=== PATIENT | female | born 1985 | race Caucasian/White ===

== ENCOUNTER 2016-12-04 21:46 | Inpatient (IN) | payer BC ==
[~2016-12-04] VITALS: Ht 160 cm; Wt 69.8 kg
[~2016-12-04 21:46] MED LIST: MTR600X PO; PRENTAB26 PO
[2016-12-04] MEDS ORDERED: LACTATED RINGER'S 1000ML 1,000 ML IV PRN (22:00)
[2016-12-04] MEDS ORDERED: LACTATED RINGER'S 1000ML 1,000 ML IV SCH (22:00)
[2016-12-04] MEDS ORDERED: PENICILLIN G POTASSIUM IV 3 MU in DEXTROSE 5% 100ML 100 ML IV PRN (22:00)
[2016-12-04] MEDS ORDERED: PENICILLIN G POTASSIUM IV 6 MU in DEXTROSE 5% 250ML 250 ML IV STA (22:05)
[2016-12-04] MEDS ORDERED: BUPIVACAINE 0.25% 30 ML VIAL ONE (22:15)
[2016-12-04] MEDS ORDERED: EpHEDrine SULFATE INJ 50 MG/ML AMP ONE (22:16)
[2016-12-04] MEDS ORDERED: FENTANYL CITRATE INJ 50 MCG/1 ML 2 ML VIAL ONE (22:16)
[2016-12-04] MEDS ORDERED: FENTANYL 2MCG/ML ROPIV 1.25MG/ML 100ML BAG EPI ONE (22:17)
[2016-12-04 22:19] VITALS: Ht 160 cm; Wt 69.8 kg
[2016-12-04 22:20] LABS: HEMATOCRIT 38.3 % (37-47); MEAN CELL VOLUME 89.3 fL (80-100); MEAN CORPUSCULAR HEMOGLOBIN 31.7 pg (25-34); MEAN CORPUSCULAR HGB CONC 35.5 g/dl (32-36); MEAN PLATELET VOLUME 10.7 fL (7.4-10.4); PLATELET COUNT 236 K/uL (130-400); RED BLOOD COUNT 4.29 M/uL (4.2-5.4); WHITE BLOOD COUNT 9.51 K/uL (4.8-10.8)
[2016-12-04] MEDS ORDERED: OXYTOCIN 30 UNITS/500ML NSS IV ONE (22:26)
--- NOTE | 2016-12-04 22:56 | HISTORY & PHYSICAL EXAMINATION ---
DATE OF ADMISSION: 12/04/2016 CHIEF COMPLAINT: Contractions. HISTORY OF PRESENT ILLNESS: The patient is a 31-year-old 2, para 1 at 38 weeks and 6 days gestation who presents to labor and delivery with contractions that began around 6:30 p.m. and progressively increased in intensity and frequency. She is currently ivon every 2-3 minutes spontaneously. On arrival, she was found to be 5 cm, 100% effaced and 0 station. heart tones are category 1. Her care has been uncomplicated. She is GBS positive. Will begin penicillin for GBS prophylaxis. PAST MEDICAL HISTORY: Significant for pneumonia. PAST SURGICAL HISTORY: She had eye surgery and thoracentesis for her pneumonia. SOCIAL HISTORY: The patient denies tobacco, alcohol or drug use. MEDICATIONS: vitamins. ALLERGIES: No known drug allergies. LABS: Blood type is O positive, group B strep positive, rubella immune, hepatitis B surface antigen negative, RPR nonreactive and HIV negative. PHYSICAL EXAMINATION: VITAL SIGNS: Blood pressure is 135/92, heart rate of 63, respiration rate of 20, temperature 97.9. GENERAL: The patient is awake, alert and oriented x3. She is in moderate distress from her contractions. HEART: Regular rate and rhythm. LUNGS: Clear to auscultation bilaterally. ABDOMEN: Soft, nontender. Bowel sounds present x4. EXTREMITIES: No clubbing, cyanosis or calf tenderness. VAGINAL: She is 5 cm dilated, 100% effaced and 0 station. heart tones category 1. ASSESSMENT AND PLAN: A 31-year-old 2, para 1 at 38 weeks and 6 days gestation, will be admitted to labor and delivery for active labor. She is GBS positive and will begin penicillin for GBS prophylaxis. She may have her epidural upon request and anticipate vaginal delivery.
[2016-12-04] MEDS ORDERED: HYDROCORTISONE ACETATE 25 MG SUPP PR PRN (23:15)
[2016-12-04] MEDS ORDERED: OXYTOCIN 30 UNITS/500ML NSS IV PRN (23:15)
[2016-12-04] MEDS ORDERED: DIPHTHERIA/TETANUS/PERTUSSIS 0.5 ML SYR/VIAL IM. ONE (23:15)
[2016-12-04] MEDS ORDERED: ACETAMINOPHEN 325 MG TAB PO PRN (23:15)
[2016-12-04] MEDS ORDERED: SUPERCREAM 0.870 % 15GM JAR EXT PRN (23:15)
[2016-12-04] MEDS ORDERED: OXYCODONE/ACETAMINOPHEN 5-325 TAB PO PRN (23:15)
[2016-12-04] MEDS ORDERED: ACETAMINOPHEN/CODEINE 300/30MG TAB PO PRN ×2 (23:15)
[2016-12-04] MEDS ORDERED: BENZOCAINE 20% AER SPR 82.5 GM CAN EXT PRN (23:15)
[2016-12-04] MEDS ORDERED: LANOLIN OINT EXT PRN ×2 (23:15)
[2016-12-04] MEDS: IBUPROFEN 600 MG TAB PO PRN (23:24)
--- NOTE | 2016-12-05 02:38 | DELIVERY SUMMARY ---
DATE OF OPERATION: 12/04/2016 TIME OF DELIVERY: 2245. DELIVERY OF PLACENTA: 2246. DELIVERY NOTE: The patient is a 31-year-old 2, para 1 at 39 weeks gestation who presented to labor and delivery on the evening of 12/04/2016 in active labor. She progressed quickly. She reached complete dilation at 2230. Artificial rupture of membranes was performed at 2243 with clear amniotic fluid. She pushed to delivery at 2246. She delivered a viable female infant in the left occiput anterior position to an intact perineum. The baby was placed on the patient's abdomen. Cord was clamped x2 and cut. Apgars were 9 at 1 minute, 9 at 5 minutes. Please see nursing notes for further baby assessment. Cord blood was then obtained and an intact placenta with 3-vessel cord was delivered at 224. Oxytocin infusion was then begun. The lower uterine segment and vagina was cleared of any blood clot and debris. Exploration of the perineum noted a second degree vaginal laceration which was injected with 1% lidocaine for anesthesia and was repaired with 2-0 and 3-0 Vicryl suture in normal fashion. Excellent hemostasis was noted. No other lacerations were seen. Estimated blood loss was 250 mL. All sponge, instruments and needle counts were found to be correct x2. Both patient and the baby tolerated the delivery well and were in recovery with stable vital signs. I attest to the content of the Intraoperative Record and any orders documented therein. Any exceptio ns are noted below.
[2016-12-05 06:46] LABS: HEMATOCRIT 34.9 % (37-47)
[2016-12-05] MEDS: DOCUSATE SODIUM 100 MG CAP PO SCH ×2 (08:11→20:20)
[2016-12-05] MEDS: FERROUS SULFATE 325 MG TAB PO SCH (08:12)
[2016-12-05] MEDS: PRENATAL VITAMIN TAB PO SCH (08:13)
[2016-12-05] MEDS: IBUPROFEN 600 MG TAB PO PRN ×3 (08:18→20:21)
--- NOTE | 2016-12-05 10:03 | OB/GYN Progress Note ---
SUBSTATION TECHNICIAN Progress Note Date of Service Dec 05, 2016. Subjective conversation w/ patient, physical exam Ambulation: ambulating normally Voiding: no voiding problems Passing Gas: Yes Diet Tolerance: Regular Diet Lochia: Small Feeding Type: Bottle Feeding Objective Physical Exam General Appearance: WELL-APPEARING, NO APPARENT DISTRESS Abdomen: non tender, soft Fundus: Firm Extremities: non-tender, normal inspection, no pedal edema Laboratory Results Last 24 Hours Test 12/04/16 22:15 12/05/16 06:04 White Blood Count 9.51 K/uL Red Blood Count 4.29 M/uL Hemoglobin 13.6 g/dL 12.2 g/dL Hematocrit 38.3 % 34.9 % Mean Corpuscular Volume 89.3 fL Mean Corpuscular Hemoglobin 31.7 pg Mean Corpuscular Hemoglobin Concent 35.5 g/dl RDW Standard Deviation 45.0 fL RDW Coefficient of Variation 13.7 % Platelet Count 236 K/uL Mean Platelet Volume 10.7 fL Assessment and Plan Post- Day Number: 1 Continue Routine Care: tent d/c in AM
[2016-12-05 14:45] VITALS: BP 136/82; PULSE 71; TEMP 36.7
[2016-12-05] MEDS ORDERED: BISACODYL 5 MG TABEC PO SCH (20:00)
[2016-12-05 20:10] VITALS: BP 116/79; PULSE 69; TEMP 36.3
[2016-12-05 23:15] VITALS: BP 122/83; PULSE 55; TEMP 36.5
[2016-12-06] MEDS: IBUPROFEN 600 MG TAB PO PRN ×4 (03:36→22:22)
[2016-12-06] MEDS ORDERED: BISACODYL 10 MG SUPP PR PRN (07:00)
[2016-12-06 07:09] LABS: HEMATOCRIT 33.5 % (37-47); MEAN CELL VOLUME 89.8 fL (80-100); MEAN CORPUSCULAR HEMOGLOBIN 31.1 pg (25-34); MEAN CORPUSCULAR HGB CONC 34.6 g/dl (32-36); MEAN PLATELET VOLUME 10.7 fL (7.4-10.4); PLATELET COUNT 194 K/uL (130-400); RED BLOOD COUNT 3.73 M/uL (4.2-5.4); WHITE BLOOD COUNT 11.58 K/uL (4.8-10.8)
[2016-12-06 07:55] VITALS: BP 109/76; PULSE 60; TEMP 36.6
[2016-12-06] MEDS: FERROUS SULFATE 325 MG TAB PO SCH (08:41)
[2016-12-06] MEDS: PRENATAL VITAMIN TAB PO SCH (08:41)
[2016-12-06] MEDS: DOCUSATE SODIUM 100 MG CAP PO SCH ×2 (08:41→19:43)
[2016-12-06] MEDS ORDERED: MTR600X PO (11:08)
--- NOTE | 2016-12-06 11:11 | OB/GYN Progress Note ---
CIVIL SERVICE CLERK Progress Note Date of Service Dec 06, 2016. Subjective conversation w/ patient, physical exam Ambulation: ambulating normally Voiding: no voiding problems Passing Gas: Yes Diet Tolerance: Regular Diet Lochia: Small Feeding Type: Breast Feeding Objective Vital Signs Date Time Temp Pulse Resp B/P Pulse Ox O2 Delivery O2 Flow Rate FiO2 12/06/16 07:55 36.6 60 20 109/76 Room Air 12/05/16 23:15 Room Air 12/05/16 23:15 36.5 55 18 122/83 Room Air 12/05/16 20:10 36.3 69 18 116/79 Room Air 12/05/16 14:45 Room Air 12/05/16 14:45 36.7 71 20 136/82 Physical Exam General Appearance: WELL-APPEARING, NO APPARENT DISTRESS Abdomen: non tender, soft Fundus: Firm Extremities: non-tender, normal inspection, no pedal edema Laboratory Results Last 24 Hours Test 12/06/16 06:12 White Blood Count 11.58 K/uL Red Blood Count 3.73 M/uL Hemoglobin 11.6 g/dL Hematocrit 33.5 % Mean Corpuscular Volume 89.8 fL Mean Corpuscular Hemoglobin 31.1 pg Mean Corpuscular Hemoglobin Concent 34.6 g/dl RDW Standard Deviation 44.6 fL RDW Coefficient of Variation 13.7 % Platelet Count 194 K/uL Mean Platelet Volume 10.7 fL Assessment and Plan Post- Day Number: 2 Continue Routine Care: discharged
[2016-12-06 15:25] VITALS: BP 107/74; PULSE 75; TEMP 36.5; O2SAT 98
[2016-12-06 22:25] VITALS: BP_DIAS 74; PULSE 75; TEMP 36.5
== END 2016-12-06 22:30 | disposition home or self-care (01) | DRG 775 ==
LOC: C.LD 21:46 → C.OPB 21:46 → C.LD 22:01 → C.OPB 22:01 → C.OBG 12-05 14:54
PROVIDERS: ADMIT Obstetrics & Gynecology; ATTEND Obstetrics & Gynecology
PROC: 0UQGXZZ Repair Vagina, External Approach (ICD-10-PCS; principal; 2016-12-04)
PROC: 10907ZC Drainage of Amniotic Fluid, Therapeutic from Products of Conception, Via Natural or Artificial Opening (ICD-10-PCS; principal; 2016-12-04)
PROC: 10E0XZZ Delivery of Products of Conception, External Approach (ICD-10-PCS; principal; 2016-12-04)
DX: O99.824 Streptococcus B carrier state complicating childbirth (principal); O71.4 Obstetric high vaginal laceration alone; Z3A.38 38 weeks gestation of pregnancy; Z37.0 Single live birth